=== PATIENT | male | born 1935 | race Caucasian/White ===

== ENCOUNTER 2021-04-10 10:32 | Outpatient (CLI) | payer MEDICARE, BC ==
[~2021-04-10 10:32] MED LIST: Iopamidol 370 76% 100 ML VIAL ONE
== END 2021-04-10 10:33 | disposition home or self-care (01) ==
LOC: CT 10:32
PROVIDERS: ATTEND Nurse Practitioner Family
DX: R79.82 Elevated C-reactive protein (CRP) (principal); L97.519 Non-pressure chronic ulcer of other part of right foot with unspecified severity; M79.89 Other specified soft tissue disorders
CPT/HCPCS: 82565; Q9967

== ENCOUNTER 2023-10-15 04:59 | Emergency (ER) | payer MEDICARE | END 2023-10-15 10:11 | disposition home or self-care (01) | LOC: ERS 04:59 | DX: S09.90XA Unspecified injury of head, initial encounter (principal); E11.9 Type 2 diabetes mellitus without complications; W18.30XA Fall on same level, unspecified, initial encounter | CPT/HCPCS: 12002; 70450; 72131; 93005 ==

== ENCOUNTER 2024-06-26 13:44 | Inpatient (IN) | payer MEDICARE, OTHER ==
[2024-06-26] MEDS ORDERED: Diltiazem HCl/D5W 125 ML ONE (14:05)
[2024-06-26] MEDS ORDERED: dilTIAZem 25 MG/5 ML VIAL ONE ×2 (14:11→14:48)
[2024-06-26 14:14] LABS: #Basophils 0.04 10x3/uL (0.0-0.2); %Basophils 0.5 % (0.0-1.0); %Eosinophils 2.3 % (0.0-10.0); %Lymphocytes 30.8 % (21.0-51.0); %Monocytes 8.9 % (0.0-10.0); %Neutrophils 57.2 % (42.0-75.0); Hematocrit 36.2 % (42.0-52.0); Hemoglobin 11.6 g/dL (14.0-18.0); Mean Corpuscular Hemoglobin 31.4 pg (27.0-31.0); Mean Corpuscular Volume 97.8 fL (78.0-98.0); Mean Platelet Volume 9.9 fL (7.4-10.4); Platelet Count 208 10x3/uL (130-400); RBC Distribution Width 14.1 % (11.5-14.5)
[2024-06-26 14:34] LABS: ALT (SGPT) 28 U/L (8-55); AST (SGOT) 20 U/L (5-34); Albumin 2.8 g/dL (3.4-4.8); Alkaline Phosphatase 135 U/L (40-110); Anion Gap 14 mmol/L (10-20); BUN (Urea Nitrogen) 28 mg/dL (8.4-25.7); Bilirubin, Total 0.3 mg/dL (0.2-1.2); Calc. Creatinine Clearance 0 mL/min (70-130); Calcium 8.2 mg/dL (7.8-10.44); Carbon Dioxide 29 mmol/L (23-31); Chloride 100 mmol/L (98-107); Estimated GFR 46; Globulin 3.2 g/dL (2.4-3.5); Glucose 176 mg/dL (83-110); Potassium 3.7 mmol/L (3.5-5.1); Sodium 139 mmol/L (136-145)
[2024-06-26 14:37] LABS: Troponin I 0.011 ng/mL (< 0.028)
[2024-06-26] MEDS ORDERED: Dextrose 5% in Water 1,000 ML IV PRN (17:44)
[2024-06-26] MEDS ORDERED: Dextrose 50% Abboject 50 ML SYRINGE SLOW IVP PRN (17:44)
[2024-06-26] MEDS ORDERED: Glucagon 1 MG/ML KIT IM PRN (17:44)
[2024-06-26] MEDS ORDERED: Acetaminophen 325 MG TAB PO PRN (17:44)
[2024-06-26] MEDS ORDERED: dilTIAZem 125 MG in Sodium Chloride 0.9% 100 ML IVPB SCH (18:00)
[2024-06-26 19:37] LABS: Magnesium 1.8 mg/dL (1.6-2.6)
[2024-06-26 22:47] LABS: Glucose 121 mg/dL (83-110)
[2024-06-27 00:55] VITALS: BMI 22.8
[2024-06-27 03:48] LABS: #Basophils Less than 0.03 10x3/uL (0.0-0.2); %Basophils 0.2 % (0.0-1.0); %Eosinophils 3.1 % (0.0-10.0); %Lymphocytes 31.4 % (21.0-51.0); %Monocytes 9.3 % (0.0-10.0); %Neutrophils 55.6 % (42.0-75.0); Hematocrit 36.4 % (42.0-52.0); Hemoglobin 11.6 g/dL (14.0-18.0); Mean Corpuscular HGB CONC 31.9 g/dL (32.0-36.0); Mean Corpuscular Hemoglobin 30.3 pg (27.0-31.0); Mean Platelet Volume 10.1 fL (7.4-10.4); Platelet Count 220 10x3/uL (130-400); RBC Distribution Width 14.1 % (11.5-14.5); Red Blood Cell (RBC) Count 3.83 mill/uL (4.70-6.10)
[2024-06-27 04:01] LABS: Anion Gap 11 mmol/L (10-20); BUN (Urea Nitrogen) 25 mg/dL (8.4-25.7); Calc. Creatinine Clearance 44 mL/min (70-130); Calcium 8.5 mg/dL (7.8-10.44); Carbon Dioxide 28 mmol/L (23-31); Chloride 103 mmol/L (98-107); Estimated GFR 56; Glucose 167 mg/dL (83-110); Potassium 3.2 mmol/L (3.5-5.1); Sodium 139 mmol/L (136-145)
[2024-06-27] MEDS ORDERED: Fluticasone Propionate Nasal Spray 16 gm Bottle NASAL PRN (08:51)
[2024-06-27] MEDS: Ferrous Gluconate 324 MG TAB PO SCH ×2 (09:21→09:27)
[2024-06-27] MEDS: Cyanocobalamin (Vitamin B-12) 1,000 MCG TAB PO SCH (09:21)
[2024-06-27] MEDS: Ascorbic Acid 500 mg Chewable Tablet PO SCH (09:22)
[2024-06-27] MEDS: Pantoprazole DR 40 MG TAB PO SCH (09:22)
[2024-06-27] MEDS: Potassium Chloride 20 MEQ TAB PO SCH (09:22)
[2024-06-27] MEDS: Enoxaparin 80 MG (0.8 mL) SYRINGE SC SCH ×2 (09:24→13:18)
[2024-06-27] MEDS: Diltiazem HCl/D5W 125 MG in Premix 1 BAG IVPB SCH (09:25)
[2024-06-27] MEDS: DULoxetine 60 MG CAP PO SCH (09:27)
[2024-06-27] MEDS ORDERED: Sodium Chloride 0.65% Nasal 44 ML BOT EA NARE PRN (13:00)
[2024-06-27] MEDS ORDERED: Ipratropium/Albuterol 3 ML NEB NEB PRN (13:00)
[2024-06-27] MEDS ORDERED: Ondansetron PF 4 MG/2 ML Vial IVP PRN (14:29)
[2024-06-27 15:48] LABS: Bacteria/HPF None Seen HPF (None Seen); Bilirubin Negative (Negative); Blood, Urine Negative (Negative); CAUTI Indications for Culture Dysuria,urgency,freq; Clarity Clear (Clear); Glucose, Urine (Dipstick) Normal (Negative); Ketone, Urine Negative (Negative); Leukocyte 25 Leu/uL (Negative); Nitrite Negative (Negative); Protein, Urine (Dipstick) Negative (Neg-Trace); RBC/HPF 0-3 HPF (0-3); Squamous Epithelial None Seen HPF (0-3); Urobilinogen Normal mg/dL (Less than 2); WBC/HPF 0-3 HPF (0-3); pH, Urine 6.5 (5.0-9.0)
[2024-06-27 15:53] LABS: Urine Culture Reflex No No
[2024-06-27] MEDS: Amiodarone 200 MG TAB PO SCH (20:14)
[2024-06-27] MEDS: Ezetimibe 10 MG TAB PO SCH (20:14)
[2024-06-27] MEDS: Apixaban 5 MG TAB PO SCH (20:15)
[2024-06-27] MEDS ORDERED: Enoxaparin 80 MG (0.8 mL) SYRINGE SC SCH (21:00)
[2024-06-27] MEDS: Insulin Regular, Human 100 UNIT/ML 10 ML VIAL SC PRN (21:19)
[2024-06-28 04:50] LABS: Anion Gap 12 mmol/L (10-20); BUN (Urea Nitrogen) 20 mg/dL (8.4-25.7); Calc. Creatinine Clearance 56 mL/min (70-130); Calcium 8.8 mg/dL (7.8-10.44); Carbon Dioxide 28 mmol/L (23-31); Chloride 101 mmol/L (98-107); Estimated GFR 75; Glucose 90 mg/dL (83-110); Potassium 3.6 mmol/L (3.5-5.1); Sodium 137 mmol/L (136-145)
[2024-06-28 12:23] VITALS: TEMP 97.6
[2024-06-28 13:17] VITALS: BP 106/69
== END 2024-06-28 18:46 | disposition home or self-care (01) | DRG 309 ==
LOC: ERS 13:44 → PCU 17:38 → OBSVTOIN 06-27 14:11
PROVIDERS: ADMIT Hospitalist; ATTEND Internal Medicine
DX: I48.0 Paroxysmal atrial fibrillation (principal); I13.2 Hypertensive heart and chronic kidney disease with heart failure and with stage 5 chronic kidney disease, or end stage renal disease; Z66 Do not resuscitate; E87.6 Hypokalemia; D64.9 Anemia, unspecified; N18.30 Chronic kidney disease, stage 3 unspecified; E78.5 Hyperlipidemia, unspecified; I25.10 Atherosclerotic heart disease of native coronary artery without angina pectoris; E11.22 Type 2 diabetes mellitus with diabetic chronic kidney disease; I50.9 Heart failure, unspecified; R30.0 Dysuria; M10.9 Gout, unspecified; N40.0 Benign prostatic hyperplasia without lower urinary tract symptoms; E03.9 Hypothyroidism, unspecified; G47.00 Insomnia, unspecified; Z96.642 Presence of left artificial hip joint; M06.9 Rheumatoid arthritis, unspecified; I95.1 Orthostatic hypotension; I35.0 Nonrheumatic aortic (valve) stenosis; I34.0 Nonrheumatic mitral (valve) insufficiency; I07.1 Rheumatic tricuspid insufficiency; N18.9 Chronic kidney disease, unspecified; E11.51 Type 2 diabetes mellitus with diabetic peripheral angiopathy without gangrene; Z95.0 Presence of cardiac pacemaker; Z88.8 Allergy status to other drugs, medicaments and biological substances; Z89.512 Acquired absence of left leg below knee; Z89.412 Acquired absence of left great toe; Z79.899 Other long term (current) drug therapy
CPT/HCPCS: 36415; 36416; 70498; 71045; 80048; 80053; 81001; 83735; 83880; 84439; 84443; 84484; 85025; 93005; 93306; 93880; J1650; J1815

== ENCOUNTER 2025-06-04 10:07 | Outpatient (CLI) | payer MEDICARE, OTHER | END 2025-06-04 10:08 | disposition home or self-care (01) | LOC: RAD 10:07 | PROVIDERS: ATTEND Internal Medicine Critical Care Medicine | DX: R06.00 Dyspnea, unspecified (principal); I51.7 Cardiomegaly; R91.8 Other nonspecific abnormal finding of lung field; Z95.0 Presence of cardiac pacemaker | CPT/HCPCS: 71046 ==